=== PATIENT | female | born 1990 | race Caucasian/White ===

== ENCOUNTER 2018-05-21 14:26 | Observation (INO) | payer OTHER ==
[~2018-05-21] VITALS: Ht 162.6 cm; Wt 75.7 kg
[~2018-05-21 14:26] MED LIST: FERR-252 PO; FERR325E14 PO; NITR100C7 PO; PREN-385 PO
[2018-05-21] MEDS ORDERED: FOLIC ACID PO (14:55)
[2018-05-21 15:09] VITALS: BP 109/64
== END 2018-05-21 16:10 | disposition home or self-care (01) ==
LOC: MLD 14:26
PROVIDERS: ADMIT Obstetrics & Gynecology; ATTEND Obstetrics & Gynecology
DX: O42.912 Preterm premature rupture of membranes, unspecified as to length of time between rupture and onset of labor, second trimester (principal); Z3A.25 25 weeks gestation of pregnancy
CPT/HCPCS: 76815; 81000; G0378; Q0092

== ENCOUNTER 2018-07-02 11:35 | Inpatient (IN) | payer OTHER ==
[~2018-07-02] VITALS: Ht 162.6 cm; Wt 78.5 kg
[~2018-07-02 11:35] MED LIST changes: -FERR325E14 PO; +FOLIC ACID PO; -NITR100C7 PO
[2018-07-02 12:30] VITALS: BP 109/68
== END 2018-07-02 14:00 | disposition home or self-care (01) | DRG 566 ==
LOC: MLD 11:35
PROVIDERS: ADMIT Obstetrics & Gynecology; ATTEND Obstetrics & Gynecology
DX: O26.899 Other specified pregnancy related conditions, unspecified trimester (principal); Z3A.32 32 weeks gestation of pregnancy
CPT/HCPCS: 76815; 81000; Q0092